=== PATIENT | male | born 1945 | race Caucasian/White ===

== ENCOUNTER 2017-04-17 16:51 | Emergency (ER) | payer MEDICARE ==
[2017-04-17 19:31] VITALS: BP 123/72
--- NOTE | 2017-04-17 19:37 | UC ---
Skin Complaint HPI - HPI Summary HPI Summary: 2 DAYS OF REDNESS AND SWELLING LEFT FOOT. NO CALF TENDERNESS OR SWELLING. NO TRAUMA. WENT TO PCP OFFICE TODAY AND WAS RX BACTRIM DS BID X 7 DAYS FOR CELLULITIS. TOOK FIRST DOSE 8 HRS AGO AND THINKS THE REDNESS HAS MOVED UP A LITTLE. IS CONCERNED BECAUSE HE IS DRIVING 6 HOURS OUT OF TOWN TOMORROW. NO FEVER. - History of Current Complaint Chief Complaint: UCLowerExtremity Time Seen by Provider: 04/17/17 18:56 Stated Complaint: SWOLLEN FOOT Hx Obtained From: Patient, Family/Flat Folder - Onset/Duration: Gradual Onset, Lasting Days, Still Present Timing: Constant Onset Severity: Moderate Current Severity: Moderate Pain Intensity: 5 Pain Scale Used: 0-10 Numeric Location: Foot (Left) Character: Swelling, Pain, Redness Aggravating Factor(s): Touch Alleviating Factor(s): Nothing Associated Signs & Symptoms: Positive: Tenderness, Red Streaks - Allergy/Home Medications Allergies/Adverse Reactions: Allergies Allergy/AdvReac Type Severity Reaction Status Date / Time No Known Allergies Allergy Verified 05/25/16 09:17 Home Medications: Home Medications Sulfamethox/Trimethoprim DS* [Bactrim DS 800/160 TAB*] 1 tab PO BID 04/17/17 [ History Confirmed 04/17/17] Review of Systems Constitutional: Negative Skin: Other - LEFT FOOT SWELLING AND ERYTHEMA Respiratory: Negative Cardiovascular: Negative Gastrointestinal: Negative Musculoskeletal: Edema All Other Systems Reviewed And Are Negative: Yes PMH/Surg Hx/FS Hx/Imm Hx Other Cancer History: SKIN CANCER - Surgical History Surgical History: Yes Surgery Procedure, Year, and Place: APPENDECTOMY- AGE 21. COLONOSCOPY. hernia repair - Family History Known Family History: Negative: Hypertension - Social History Alcohol Use: Occasionally Substance Use Type: None Smoking Status (MU): Never Smoked Tobacco Have You Smoked in the Last Year: No Physical Exam Triage Information Reviewed: Yes Appearance: Well-Appearing, No Pain Distress, Well-Nourished Vital Signs: Initial Vital Signs Temp 99.2 F 04/17/17 17:37 Pulse 77 04/17/17 17:37 Resp 18 04/17/17 17:37 BP 128/75 04/17/17 17:37 Pulse Ox 99 04/17/17 17:37 Vital Signs Reviewed: Yes Eyes: Positive: Conjunctiva Clear ENT: Positive: Hearing grossly normal Neck: Positive: Supple Respiratory: Positive: No respiratory distress, No accessory muscle use Cardiovascular: Positive: Pulses Normal Abdomen Description: Positive: Soft Musculoskeletal: Positive: ROM Limited @ - LEFT TOES, Edema @ - LEFT FOOT, Other : - NO ANKLE TENDERNESS Neurological: Positive: Alert Psychological: Positive: Normal Response To Family, Age Appropriate Behavior Skin: Positive: Other - ERYTHEMA LEFT FOOT TO ANKLE Course/Dx - Course Course Of Treatment: ADVISED PT THAT NEED TO WAIT 24-48 HOURS ON ABX BEFORE DECIDING TX HAS FAILED. GIVEN PT LEAVING TOWN WILL RX KEFLEX FOR PT TO USE IF NOT IMPROVING AFTER 48 HOURS ON BACTRIM. PRESENTATION NOT C/W GOUT OR DVT. - Diagnoses Provider Diagnoses: LEFT FOOT CELLULITIS Discharge - Discharge Plan Condition: Stable Disposition: HOME Prescriptions: Cephalexin CAP* [Keflex 500 CAP*] 1,000 mg PO BID #28 cap Patient Education Materials: Cellulitis (ED) Referrals: Donnie Pereyra MD [Primary Care Provider] - If Needed Additional Instructions: CONTINUE YOUR BACTRIM PRESCRIBED. IF AFTER 48 HOURS ON THIS MEDICATION YOUR REDNESS AND SWELLING ARE NOT IMPROVING GO AHEAD AND START THE KEFLEX TWICE DAILY. KEEP YOUR FOOT ELEVATED WHEN SEATED YOU ARE ABLE. TAKE OTC IBUPROFEN NEEDED FOR DISCOMFORT. GO TO THE ER WITHOUT FAIL IF YOU DEVELOP FEVER, JOINT PAIN, CALF PAIN OR ANY OTHER CONCERNING SYMPTOMS. IBUPROFEN MAX DOSE: 600MG (3 TABS) EVERY 6 HRS OR 800MG (4 TABS) EVERY 8 HRS TYLENOL MAX DOSE: 1000MG (2 EXTRA STRENGTH TABS) EVERY 8 HRS
== END 2017-04-17 19:35 | disposition home or self-care (01) ==
LOC: UCEAST 16:51
DX: L03.116 Cellulitis of left lower limb (principal); Z85.828 Personal history of other malignant neoplasm of skin
CPT/HCPCS: 99212; G0463

== ENCOUNTER 2018-08-01 05:49 | Day surgery (SDC) | payer MEDICARE ==
--- NOTE | 2018-07-25 19:16 | HP ---
CC: Dr. Donnie Pereyra * PREOPERATIVE HISTORY AND PHYSICAL: DATE OF ADMISSION: 08/01/18 This patient is scheduled for same-day surgery admission by Dr. Cadena on 08/01/18. DATE OF PREOPERATIVE HISTORY AND PHYSICAL EXAMINATION: 07/25/18 ATTENDING SURGEON: Dr. Rojelio Cadena * (dictated by Noreen Stephenson NP). CHIEF COMPLAINT: Right inguinal hernia. HISTORY OF PRESENT ILLNESS: The patient is a 72-year-old male, recently evaluated by Dr. Cadena for a right inguinal hernia. The patient noted a bulge in the right groin that had been present for about a month; this is causing discomfort especially after doing lifting. He denies any signs or symptoms to suggest incarceration or strangulation; he denies any dysuria. He had an open left inguinal hernia repair with mesh by Dr. Cadena in 2015. Dr. Cadena examined the patient and notes an obvious moderate size bulge in the right inguinal region consistent with a reducible hernia. There is no recurrent left inguinal hernia. Dr. Cadena discussed the findings with the patient and has recommended open right inguinal hernia repair with mesh as a same-day surgery procedure. Dr. Cadena discussed the nature of the surgical procedure, the rationale for the procedure, the relevant risks and benefits, and today, I reviewed the expected postoperative care and recovery. The patient has had a chance to ask questions and stated that he understands the information and is satisfied with the answers given to his questions. He will sign surgical consent on the day of surgery. PAST MEDICAL HISTORY: Generally healthy. No acute or chronic conditions. PAST SURGICAL HISTORY: Open left inguinal hernia repair, April 2016, by Dr. Cadena; open appendectomy age 22. MEDICATIONS: None currently. ALLERGIES: No known drug allergies. FAMILY HISTORY: No known anesthesia complications, bleeding tendencies, or clotting disorders. The patient's sister had colon cancer. SOCIAL HISTORY: He is and is a retired professor. He has never been a smoker and drinks approximately 7 alcoholic beverages per week. REVIEW OF SYSTEMS: Constitutional: No fevers, chills, excessive fatigue, or weight loss. Endocrine: No diabetes or thyroid disease. Hematologic: No easy bruising or bleeding. No history of blood transfusions. Respiratory: No dyspnea on exertion, no chronic cough. Cardiovascular: No anginal chest pain, palpitations, or pressure. No history of myocardial infarction. Gastrointestinal: No nausea, vomiting, diarrhea, GI bleeding, or constipation, no change in bowel habits. Genitourinary: No dysuria. Musculoskeletal: No joint or back pain. Integumentary: No chronic rashes or skin changes. Neurologic: No headache or blurred vision. No areas of focal weakness or numbness. General: No previous anesthesia complications. No bleeding tendencies. No history of deep vein thrombosis or pulmonary embolism. PHYSICAL EXAMINATION GENERAL SURVEY: The patient is a 72-year-old male, well developed, well nourished, in no acute distress. VITAL SIGNS: Height 70 inches, weight 150 pounds, body mass index 21.5. Blood pressure 118/80, pulse 58 and regular, respiratory rate 16, and temperature 96.7 tympanic. HEENT: Benign. NECK: Supple. No cervical lymphadenopathy. Trachea midline. LUNGS: Breath sounds bilaterally clear and equal. HEART: Regular rate and rhythm. No murmurs or rubs appreciated. ABDOMEN: Well-healed surgical scar, right lower quadrant. Active bowel sounds. Soft, nondistended, nontender throughout. No obvious masses, organomegaly, or evidence of umbilical hernia. Inguinal exam done by Dr. Cadena, right groin has an obvious moderate size bulge that on exam has a reducible and mildly tender right inguinal hernia; well healed left groin oblique incision without recurrent hernia. No scrotal swelling. RECTAL EXAM: Deferred. EXTREMITIES: Warm without edema or skin ulceration. NEUROLOGIC: Alert and oriented x3. Steady gait. BACK: No CVA tenderness. SKIN: Warm, dry, and intact. IMPRESSION: Right inguinal hernia. PLAN: Same-day surgery admission to Dr. Cadena's service on 08/01/18 , for open right inguinal hernia repair with mesh. ROBBIN STEPHENSON NP [id number]/[facility] #: [id number] VIET
[2018-08-01] MEDS ORDERED: Famotidine IV* 10 MG/ML 2 ML (20 mg) IV ONE (06:00)
[2018-08-01] MEDS ORDERED: Buffered Lidocaine 0.9% SYRIN* 5 ML/SYR SYRINGE INTRADERM ONE (06:00)
[2018-08-01] MEDS ORDERED: Lactated Ringers 1000 ML Bag* 1,000 ML IV SCH (06:00)
[2018-08-01] MEDS ORDERED: Famotidine IV* 10 MG/ML 2 ML (20 mg) ONE (06:18)
[2018-08-01] MEDS ORDERED: ceFAZolin 2 GM PREMIX in ORs 2 GM/50 ML BAG IVPB ONE (06:18)
[2018-08-01] MEDS ORDERED: Bupivacaine 0.5% W/EPI SDV* 30 ML VIAL ONE (06:50)
[2018-08-01] MEDS ORDERED: Lidocaine 1% INJ* 10 MG/ML 30 ML SDV ONE (06:50)
[2018-08-01] MEDS ORDERED: Dexamethasone IV* 4 MG/ML 1 ML (4 MG) ONE (07:12)
[2018-08-01] MEDS ORDERED: Ondansetron INJ* 2 MG/ML VIAL ONE (07:12)
[2018-08-01] MEDS ORDERED: Ketorolac INJ* 30 MG/ML 1 ML VIAL ONE (07:12)
[2018-08-01] MEDS ORDERED: Propofol* 10 MG/ML 20 ML BTL ONE ×2 (07:12→08:32)
[2018-08-01] MEDS ORDERED: Lidocaine 2% PF * 5 ML VIAL ONE (07:12)
[2018-08-01] MEDS ORDERED: Midazolam* 1 MG/ML 5 ML VIAL (5 MG) ONE (07:13)
[2018-08-01] MEDS ORDERED: fentaNYL* 50 MCG/ML 2 ML VIAL (100 MCG VIAL) ONE (07:13)
[2018-08-01] MEDS ORDERED: KETAMINE HCL* 50 MG/ML 10 ML VIAL ONE (07:13)
[2018-08-01] MEDS ORDERED: Naloxone* 0.4 MG/ML 1 ML VIAL IV PRN (08:12)
[2018-08-01] MEDS ORDERED: Ondansetron INJ* 2 MG/ML VIAL IV PRN (08:12)
[2018-08-01] MEDS ORDERED: fentaNYL* 50 MCG/ML 2 ML VIAL (100 MCG VIAL) IV PRN (08:12)
[2018-08-01] MEDS ORDERED: oxyCODONE/Acetamin 5/325 MG* TAB PO PRN (08:12)
[2018-08-01 10:28] VITALS: BP 109/63
--- NOTE | 2018-08-02 00:55 | OP ---
DATE OF OPERATION: 08/01/18 - [facility] DATE OF : 45 SURGEON: Rojelio Cadena MD FINAL INSPECTOR [employer]SEM[employer]Y: Noreen Stephenson NP ANESTHESIA: Local with monitored anesthesia care with Dr. Moss. PRE-OP DIAGNOSIS: Right inguinal hernia. POST-OP DIAGNOSIS: Right indirect inguinal hernia. OPERATIVE PROCEDURE: Open repair with mesh of a right indirect inguinal hernia. WOUND CLASSIFICATION: I. COMPLICATIONS: None. DRAINS: None. SPECIMENS: None. DESCRIPTION OF PROCEDURE: Written informed consent was obtained, the right groin was marked with indelible ink and preoperative antibiotics were administered. The patient was taken to the operating room, placed in the supine position. Sequential compression devices and warming blanket were applied. The right groin and lower abdomen were prepped and draped in usual sterile fashion. Time-out verification was completed. Initially, 0.25% Marcaine mixed with 1% lidocaine was infiltrated in the right groin and an oblique incision was made several fingerbreadths above the inguinal crease carried down through Akil's fascia. External oblique aponeurosis and external ring were identified and the aponeurosis was opened in the direction of its fibers. Spermatic cord and its contents were encircled with a one-quarter inch [place] drain at the pubic tubercle. The direct space was evaluated; it appeared to be unremarkable. There was some chronic scarring and tissue within the spermatic cord itself and with some careful, but difficult dissection, there was a thin very scarred indirect inguinal sac, which was from the cord structures up into the internal ring which was really almost of normal and expected caliber. Care was taken to prevent injury to the spermatic cord including the vas deferens. I did divide the ilioinguinal nerve as this was quite adherent to the sac with scar tissue and I felt this had been damaged and would interfere with the mesh placement. Once the hernia sac was dissected up into the internal ring and reduced, a Covidien pre-cut self-adhering mesh was then placed and sutured to the pubic tubercle medially and then placed to cover the direct and indirect spaces in the usual fashion. It sat nicely without wrinkling or tension. Hemostasis was assured. Additional Marcaine was infiltrated. The external oblique aponeurosis was closed with running 3-0 Vicryl suture. Akil's fascia was closed with running 3-0 Vicryl suture. The skin was approximated with subcuticular 4-0 Vicryl suture. Steri-Strips and sterile dressings were applied. The patient tolerated the procedure well and was taken to the recovery room in stable condition. [id number]/[facility] #: [id number] MTDD
== END 2018-08-01 10:31 | disposition home or self-care (01) ==
LOC: OR 05:49
PROVIDERS: ATTEND Surgery
DX: K40.90 Unilateral inguinal hernia, without obstruction or gangrene, not specified as recurrent (principal)
CPT/HCPCS: C1781; J0690; J1100; J1885; J2250; J2405; J2704; J3010